=== PATIENT | female | born 1975 | race Caucasian/White ===

== ENCOUNTER 2019-10-21 10:05 | Emergency (ER) | payer MEDICAID, OTHER ==
[~2019-10-21] VITALS: Ht 157.5 cm; Wt 79.2 kg
[2019-10-21] MEDS ORDERED: ONDANSETRON 2MG/ML, 2ML IVPush ONE (10:30)
[2019-10-21] MEDS ORDERED: SODIUM CHLORIDE FLUSH 10ML SYR IVF ONE (10:30)
[2019-10-21 10:41] LABS: MICROSCOPIC NOT IND
--- NOTE | 2019-10-21 10:44 | NUR ---
TASK RN NOTE: PIV PLACED, LABS DRAWN AND SENT TO LAB. PT TOLERATED WELL. PRIMARY RN TO MEDICATE FOR ABD PAIN.
[2019-10-21] MEDS ORDERED: MORPHINE SULFATE 4 MG/ML, 1ML ONE ×2 (10:45→12:37)
[2019-10-21] MEDS ORDERED: ONDANSETRON 2MG/ML, 2ML ONE (10:45)
[2019-10-21 10:48] LABS: BASOPHILS # (AUTO) 0.03 x10^3/uL (0-0.1); BASOPHILS % (AUTO) 1 % (0-1); EOSINOPHILS # (AUTO) 0.13 x10^3/uL (0-0.4); EOSINOPHILS % (AUTO) 2 % (1-7); LYMPHOCYTES # (AUTO) 1.18 x10^3/uL (1-3.4); LYMPHOCYTES % (AUTO) 20 % (22-44); MD NO; MEAN CORPUSCULAR HEMOGLOBIN 30.3 pg (27.0-34.8); MEAN CORPUSCULAR HGB CONC 34.7 g/dL (32.4-35.8); MEAN CORPUSCULAR VOLUME 87.3 fL (80-100); MONOCYTES # (AUTO) 0.25 x10^3/uL (0.2-0.8); MONOCYTES % (AUTO) 4 % (2-9); NEUTROPHILS # (AUTO) 4.27 x10^3/uL (1.8-6.8); NEUTROPHILS % (AUTO) 73 % (42-75); PLATELET COUNT 279 x10^3/uL (130-400); RED BLOOD COUNT 4.72 x10^6/uL (3.82-5.3); RED CELL DISTRIBUTION WIDTH 13.3 % (9.6-15.2)
[2019-10-21 10:50] LABS: CULTURE INDICATED? NO
[2019-10-21] MEDS: MORPHINE SULFATE 4 MG/ML, 1ML IVPush PRN ×2 (10:51→12:40)
[2019-10-21 10:57] LABS: ALBUMIN 3.7 g/dL (3.4-5.0); ANION GAP 5 mmol/L (5-15); CALCIUM 8.7 mg/dL (8.5-10.1); CHLORIDE 109 mmol/L (98-107); CREATININE 0.77 mg/dL (0.55-1.02)
[2019-10-21 12:34] VITALS: BP 120/63
[2019-10-21] MEDS ORDERED: CIPROFLOXACIN/PMX 400MG/200ML 200 ML ONE (13:08)
[2019-10-21] MEDS ORDERED: METRONIDAZOLE PMX 500MG/100ML 100 ML ONE (13:08)
[2019-10-21] MEDS ORDERED: METRONIDAZOLE PMX 500MG/100ML 100 ML IV ONE (13:30)
[2019-10-21] MEDS ORDERED: CIPROFLOXACIN/PMX 400MG/200ML 200 ML IV ONE (13:30)
== END 2019-10-21 14:11 | disposition home or self-care (01) ==
LOC: ED 10:37
DX: K57.92 Diverticulitis of intestine, part unspecified, without perforation or abscess without bleeding (principal); Z90.710 Acquired absence of both cervix and uterus
CPT/HCPCS: 36415; 74177; 80048; 81003; 82040; 85025; 96365; 96367; 96375; 96376; 99285; J0744; J2270; J2405; 96366